=== PATIENT | male | born 1990 | race Caucasian/White ===

== ENCOUNTER 2018-07-09 09:56 | Inpatient (IN) ==
[2018-07-09] MEDS ORDERED: 0.9 % Sodium Chloride 1,000 ML IVC ONE (10:19)
[2018-07-09] MEDS ORDERED: Ondansetron 4 MG/2 ML VIAL IVP ONE ×2 (10:20→12:58)
--- NOTE | 2018-07-09 10:25 | Emergency Department Note ---
Disposition Clinical Impression: Colitis Disposition: Admitted As Inpatient Time of Disposition: 14:28 General Adult HPI - General Chief complaint: ED Abdominal Pain Stated complaint: Dehydrated/vomiting Time Seen by Provider: 07/09/18 10:03 Source: patient Limitations: no limitations Nursing Notes Reviewed: Yes Vital Signs Reviewed: Yes - History of Present Illness HPI Narrative: Patient is a 28-year-old male with no significant past medical history who presents to the ED with 2 days of left lower quadrant abdominal pain and vomit ing. Patient first noticed symptoms yesterday at 8 AM where he had intense abdominal pain. On his way home from work he vomited several times. pain is sharp and constant. Got worse over 3 hours. He went to around noon. He had an abdominal CAT scan and states results were colitis patient was sent home on Cipro, Flagyl, Phenergan, Bentyl. Patient states he has been unable to keep any of these medications down. The pain in the vomiting are persisting. Nothing has made it better. Patient has not noted any blood in his vomit. Patient denies any diarrhea. Patient states his last bowel movement was yesterday around 2 PM but it was normal. Patient denies any fevers, chills, headache Pain Scale: 10 - Related Data Allergies Allergy/AdvReac Type Severity Reaction Status Date / Time No Known Allergies Allergy Verified 07/09/18 10:08 Constitutional: Reports: as per HPI Cardiovascular: Denies: chest pain, dyspnea on exertion Respiratory: Denies: cough, dyspnea Gastrointestinal: Reports: as per HPI Genitourinary: Denies: urgency, dysuria Neurological: Reports: as per HPI Past Medical History - Past Medical History Medical history: Reports: no medical history Psychiatric history: Reports: no psych history - Social History Smoking Status: Never smoker Alcohol use: Reports: none Drug use: Reports: none Physical Exam Patient is shivering in bed. His hands are cramping during blood pressure monitoring. During the first examination I had to stop had to stop because he was actively vomiting. - General Limitations: no limitations General appearance: alert, in no apparent distress - Head Head exam: atraumatic, normocephalic, normal inspection - ENT ENT exam: mucous membranes dry - Chest Chest inspection: Present: normal inspection, symmetric chest wall rise. Absent: tenderness - Respiratory Respiratory exam: Present: normal lung sounds bilaterally. Absent: respiratory distress, wheezes - Cardiovascular Cardiovascular exam: Present: regular rate, normal rhythm, normal heart sounds, +S1, +S2. Absent: systolic murmur, diastolic murmur - Abdominal Exam Abdominal exam: Present: soft, tenderness (Moderate. Said his left lower qu adrant patient does withdraw to some of the patient but he is able to tolerate the exam.), normal bowel sounds. Absent: distention, guarding, rebound Abdominal tenderness: Present: RLQ - Rectal Exam Rectal exam: Present: normal inspection, other (No lesion or scarring noted around the rectum.) - Male exam: Present: normal inspection, normal testicular lie. Absent: inguinal hernia, inguinal lymphadenopathy, testicular tenderness, urethral discharge - Extremities Exam Extremities exam: Present: normal inspection. Absent: tenderness, pedal edema, calf tenderness - Psychiatric Psychiatric exam: Present: normal affect, normal mood - Skin Skin exam: Present: warm, dry, intact Course Vital Signs Temperature 98.1 F 07/09/18 10:00 Pulse Rate 76 07/09/18 10:00 Respiratory Rate 18 07/09/18 10:00 Blood Pressure 192/76 07/09/18 10:00 O2 Sat by Pulse Oximetry 97 07/09/18 10:00 Temperature 98.1 F 07/09/18 10:00 Pulse Rate 69 07/09/18 10:37 Respiratory Rate 17 07/09/18 17:06 Blood Pressure 130/84 07/09/18 17:06 O2 Sat by Pulse Oximetry 100 07/09/18 10:37 Oxygen Delivery Oxygen Delivery Room Air Medical Decision Making - [facility] Narrative Medical decision making narrative: Patient seen at [facility] yesterday. Records were requested. Will review once they are available. These include abdominal CT. Per patient report he has colitis. Patient was actually vomiting. We will bolus and milligrams Zofran given. Patient hand was cramping during blood pressure will get CBC CMP look for any elective abnormalities. Mentioned in the past had similar symptoms 5 years ago. That time was concerning for colitis. He did not follow-up with GI doctor. I recommended him that he does see a GI doctor. CT was reviewed from [facility]. "Mild wall thickening involving most: Likely due to nondistention, although an acute inflammatory infectious colitis cannot be excluded if this clinically correlates." Her labs white count elevated 13.6. Calcium is slightly elevated at 10.4. Spoke with GI they recommended starting IV antibiotics of Cipro and Flagyl. Like to do GI panel fecal calprotectan and start on the clear liquid diet and prep for colonoscopy tomorrow afternoon. Dr. Topete accepts for admission. - Medical Records Medical records reviewed: Yes I reviewed the patient's medical records. - Lab Data Lab results reviewed: Yes I reviewed the patient's lab results. Result diagrams: 07/09/18 10:34 07/09/18 10:34 Lab Results 07/09/18 07/09/18 07/09/18 Range/Units 10:34 10:34 11:16 WBC 11.1 (4.3-11.1) K/mcL RBC 5.11 (4.19-5.50) M/mcL Hgb 15.4 (12.9-16.9) g/dL Hct 43.0 (37.5-50.1) % MCV 84.1 (83.0-100.0) fL MCH 30.1 (28.0-33.3) pg MCHC 35.8 H (31.6-35.5) g/dL RDW 12.2 (11.5-14.5) % Plt Count 233 (140-400) K/mcL MPV 9.4 (9.4-12.4) fL Immature Gran % 0.3 (0-4) % Seg Neutrophils % 85.7 % Lymphocytes % 8.9 % Monocytes % 4.8 % Eosinophils % 0.0 % Basophils % 0.3 % Neutrophils # 9.5 H (1.6-8.9) K/mcL Lymphocytes # 1.0 (0.6-4.6) K/mcL Monocytes # 0.5 (0.0-1.3) K/mcL Eosinophils # 0.0 (0.0-0.6) K/mcL Basophils # 0.0 (0.0-0.2) K/mcL Sodium 141 (136-145) mEq/L Potassium 3.3 L (3.5-5.1) mEq/L Chloride 98 (98-107) mEq/L Carbon Dioxide 25 (23-29) mEq/L BUN 27 H (6-20) mg/dL Creatinine 1.33 H (0.70-1.30) mg/dL Est GFR ( Amer) > 60 (> 60) Est GFR (Non-Af Amer) > 60 (> 60) BUN/Creatinine Ratio 20 (6-26) Glucose 117 H (70-105) mg/dL Calculated Osmolality 298 (280-300) Calcium 11.1 H (8.6-10.3) mg/dL Venous Ioniz Calcium 1.11 L (1.15-1.35) mmol/L Total Bilirubin 1.0 (0.3-1.0) mg/dL AST 14 (13-39) Units/L ALT 14 (7-52) Units/L Alkaline Phosphatase 74 (34-104) Units/L Serum Total Protein 8.6 (6.4-8.9) g/dL Albumin 5.5 (3.5-5.7) g/dL Globulin 3.1 (2.4-3.5) g/dL Albumin/Globulin Ratio 1.8 (1.1-2.2)
[2018-07-09 11:03] LABS: Basophils % 0.3 %; Hemoglobin 15.4 g/dL (12.9-16.9); Immature Granulocytes % 0.3 % (0-4); Lymphocytes % 8.9 %; Mean Corpuscular HGB Conc 35.8 g/dL (31.6-35.5); Mean Corpuscular Hemoglobin 30.1 pg (28.0-33.3); Mean Corpuscular Volume 84.1 fL (83.0-100.0); Mean Platelet Volume 9.4 fL (9.4-12.4); Monocytes # 0.5 K/mcL (0.0-1.3); Monocytes % 4.8 %; Neutrophils # 9.5 K/mcL (1.6-8.9); Platelet Count 233 K/mcL (140-400); Red Blood Count 5.11 M/mcL (4.19-5.50); Red Cell Distribution Width 12.2 % (11.5-14.5); Segmented Neutrophils % 85.7 %
[2018-07-09 11:19] LABS: VBG Ionized Calcium 1.11 mmol/L (1.15-1.35)
--- NOTE | 2018-07-09 11:24 | Emergency Department Note ---
Disposition Clinical Impression: Colitis Disposition: Admitted As Inpatient General Adult HPI - General Chief complaint: ED Abdominal Pain Stated complaint: Dehydrated/vomiting Time Seen by Provider: 07/09/18 10:03 Source: patient Limitations: no limitations - History of Present Illness Pain Scale: 10 - Related Data Allergies Allergy/AdvReac Type Severity Reaction Status Date / Time No Known Allergies Allergy Verified 07/09/18 10:08 Constitutional: Reports: as per HPI Cardiovascular: Denies: chest pain, dyspnea on exertion Respiratory: Denies: cough, dyspnea Gastrointestinal: Reports: as per HPI Genitourinary: Denies: urgency, dysuria Neurological: Reports: as per HPI Past Medical History - Past Medical History Medical history: Reports: no medical history Psychiatric history: Reports: no psych history - Social History Smoking Status: Never smoker Alcohol use: Reports: none Drug use: Reports: none Physical Exam - General Limitations: no limitations General appearance: alert, in no apparent distress Course Vital Signs Temperature 98.1 F 07/09/18 10:00 Pulse Rate 76 07/09/18 10:00 Respiratory Rate 18 07/09/18 10:00 Blood Pressure 192/76 07/09/18 10:00 O2 Sat by Pulse Oximetry 97 07/09/18 10:00 Temperature 98.1 F 07/09/18 10:00 Pulse Rate 69 07/09/18 10:37 Respiratory Rate 17 07/09/18 17:06 Blood Pressure 130/84 07/09/18 17:06 O2 Sat by Pulse Oximetry 100 07/09/18 10:37 Oxygen Delivery Oxygen Delivery Room Air Medical Decision Making - Lab Data Result diagrams: 07/09/18 10:34 07/09/18 10:34 Lab Results 07/09/18 07/09/18 07/09/18 Range/Units 10:34 10:34 11:16 WBC 11.1 (4.3-11.1) K/mcL RBC 5.11 (4.19-5.50) M/mcL Hgb 15.4 (12.9-16.9) g/dL Hct 43.0 (37.5-50.1) % MCV 84.1 (83.0-100.0) fL MCH 30.1 (28.0-33.3) pg MCHC 35.8 H (31.6-35.5) g/dL RDW 12.2 (11.5-14.5) % Plt Count 233 (140-400) K/mcL MPV 9.4 (9.4-12.4) fL Immature Gran % 0.3 (0-4) % Seg Neutrophils % 85.7 % Lymphocytes % 8.9 % Monocytes % 4.8 % Eosinophils % 0.0 % Basophils % 0.3 % Neutrophils # 9.5 H (1.6-8.9) K/mcL Lymphocytes # 1.0 (0.6-4.6) K/mcL Monocytes # 0.5 (0.0-1.3) K/mcL Eosinophils # 0.0 (0.0-0.6) K/mcL Basophils # 0.0 (0.0-0.2) K/mcL Sodium 141 (136-145) mEq/L Potassium 3.3 L (3.5-5.1) mEq/L Chloride 98 (98-107) mEq/L Carbon Dioxide 25 (23-29) mEq/L BUN 27 H (6-20) mg/dL Creatinine 1.33 H (0.70-1.30) mg/dL Est GFR ( Amer) > 60 (> 60) Est GFR (Non-Af Amer) > 60 (> 60) BUN/Creatinine Ratio 20 (6-26) Glucose 117 H (70-105) mg/dL Calculated Osmolality 298 (280-300) Calcium 11.1 H (8.6-10.3) mg/dL Venous Ioniz Calcium 1.11 L (1.15-1.35) mmol/L Total Bilirubin 1.0 (0.3-1.0) mg/dL AST 14 (13-39) Units/L ALT 14 (7-52) Units/L Alkaline Phosphatase 74 (34-104) Units/L Serum Total Protein 8.6 (6.4-8.9) g/dL Albumin 5.5 (3.5-5.7) g/dL Globulin 3.1 (2.4-3.5) g/dL Albumin/Globulin Ratio 1.8 (1.1-2.2) Attestation Statement - Attestation Attestation: I examined this patient and my medical decision-making was reviewed with the DIGITAL CARTOGRAPHIC TECHNICIAN/PA/Advanced Practice Nurse/Resident Physician. I agree with the documented findings, disposition and treatment plan as described except to the extent set forth below. The patient presents with complaints of abdominal pain and vomiting but no diarrhea. He is having normal stools. Does have pain with palpation left side of the abdomen but soft without rigidity, rebound, guarding. Normal appearance. The patient is getting IV fluids, IV Zofran, labs including iron as calcium level and we will review the records from [facility] from yesterday and had requested those records however we have not yet received them and we are waiting at this time. We will reassess the patient. He has never had a colonoscopy but sounds like there was some concern for ulcerative colitis in the distant past. He is taking Cipro and Flagyl but has not been able to take them and he has not drank any alcohol so that is not the reason for his vomiting. I did just receive the records from [facility] and have reviewed these records and the patient did have a CT scan yesterday showing mild wall thickening involving most: And the patient's CT scan was compared to a CT scan done in 2017. The CT scan yesterday was with IV contrast. After we receive labs here we will further discussed with GI. Patient's calcium level is minimally elevated yesterday 10.4 - 1124
[2018-07-09 11:44] LABS: Alanine Aminotransferase 14 Units/L (7-52); Albumin 5.5 g/dL (3.5-5.7); Albumin/Globulin Ratio 1.8 (1.1-2.2); Alkaline Phosphatase 74 Units/L (34-104); Aspartate Amino Transferase 14 Units/L (13-39); BUN/Creatinine Ratio 20 (6-26); Blood Urea Nitrogen 27 mg/dL (6-20); Calcium 11.1 mg/dL (8.6-10.3); Carbon Dioxide 25 mEq/L (23-29); Chloride 98 mEq/L (98-107); Globulin 3.1 g/dL (2.4-3.5); Glucose 117 mg/dL (70-105); Osmolality,Calculated 298 (280-300); Potassium 3.3 mEq/L (3.5-5.1); Sodium 141 mEq/L (136-145); Total Protein 8.6 g/dL (6.4-8.9); eGFR For Non-African Americans > 60 (> 60)
[2018-07-09] MEDS ORDERED: MetroNIDAZOLE 500 MG/100 ML 500 MG/100 ML BAG IVPB ONE (14:06)
[2018-07-09] MEDS ORDERED: Hyoscyamine 0.5 MG/ML MLS IVP ONE (14:12)
[2018-07-09] MEDS ORDERED: *HR* Promethazine 25 MG/ML VIAL IVP ONE (14:17)
[2018-07-09] MEDS ORDERED: Naloxone 0.4 MG/ML INJ IVP PRN (14:39)
--- NOTE | 2018-07-09 15:38 | Internal Med History&Physical ---
Date of Encounter: 07/09/18 Time of Encounter: 15:33 Internal Medicine - H&P: HPI Chief complaint: Abdominal pain Admitted From: Emergency Dept Plans for Post Hospital Care: Home History of present illness: Mr. Landers is a 28 year old male male with no significant past medical history who presented to the ED with intractable left lower quadrant abdominal pain, nausea and vomiting from past 2 days. He did go to [place] ER y/d where he had CT of Abd done which showed colitis and he was sent home on PO Cipro and Flagyl. However his symptoms have not improved and he is still have severe nausea and vomiting. He also mentioned he has been having this kind of N/V spells for few years associated with abdominal pain. He denied any EGD / Colonoscopy in the past. He denied any family h/o UC / Crohn's disease. He denied any recent travel history. Past Med Surg Social Fam HX - Past Medical History Medical history: no medical history Psychiatric history: no psych history - Past Surgical History Additional surgical history: wrist surgery - Social History Smoking Status: Never smoker Alcohol use: none Drug use: none - Additional Family History Additional family history: Family hsitory reviewed and non contribuitory to current problem. Internal Medicine - H&P: Meds Allergy/AdvReac Type Severity Reaction Status Date / Time No Known Allergies Allergy Verified 07/09/18 10:08 All Systems PM: A 10-system review of systems was performed and is negative for pertinent findings except as documented above in the HPI. Review of systems: All the systems are reviewed everything is benign except the systems and symptoms I mentioned in the history of present illness - Constitutional Vitals: Temp Pulse Resp BP Pulse Ox 98.1 F 69 15 158/81 100 07/09/18 10:00 07/09/18 10:37 07/09/18 10:37 07/09/18 10:37 07/09/18 10:37 General appearance: Present: cooperative, mild distress (with abdominal pain), A&O X 3, answers questions appropriately Exam: see below - Head Head exam: Present: atraumatic, normal inspection - Neck Neck exam general surgery: Present: supple - Respiratory Respiratory exam: Present: decreased breath sounds. Absent: rales, respiratory distress, rhonchi, wheezes - Cardiovascular Cardiovascular exam: Present: RRR, +S1, +S2. Absent: tachycardia - GI/Abdominal GI/Abdominal exam: Present: diminished bowel sounds, normal bowel sounds, soft, tenderness (LLQ), no peritoneal signs. Absent: guarding, rebound, rigid - Extremities Exam Extremities exam: Absent: calf tenderness, pedal edema, tenderness - Back Exam Back exam: Absent: CVA tenderness (L), CVA tenderness (R) - Neurological Exam Neurological exam: Present: alert, oriented X3 - Psychiatric Psychiatric exam: Present: normal affect, normal mood - Skin Skin exam: Absent: rash Internal Med - H&P Results - Labs CBC & Chem 7: 07/09/18 10:34 07/09/18 10:34 Labs: Short CBC 07/09/18 Range/Units 10:34 WBC 11.1 (4.3-11.1) K/mcL Hgb 15.4 (12.9-16.9) g/dL Hct 43.0 (37.5-50.1) % Plt Count 233 (140-400) K/mcL Neutrophils # 9.5 H (1.6-8.9) K/mcL BMP 07/09/18 10:34 Sodium 141 Potassium 3.3 L Chloride 98 Carbon Dioxide 25 BUN 27 H Creatinine 1.33 H Glucose 117 H Calcium 11.1 H Liver Function 07/09/18 Range/Units 10:34 Total Bilirubin 1.0 (0.3-1.0) mg/dL AST 14 (13-39) Units/L ALT 14 (7-52) Units/L Alkaline Phosphatase 74 (34-104) Units/L Albumin 5.5 (3.5-5.7) g/dL - Assessment and plan (1) Colitis Current Visit: Yes Status: Acute Assessment and plan: Place the pt into med surg for observation his CT of [place] showed Colitis Concerning for inflammatory disease However need to f/o infectious process too will check GI panel He denied any Melena/ BRBPR GI is already consulted by ER Clear liquid diet for now NPO after mid night if he needs to go for Colonoscopy in AM No need of steroids at this point Started him on PO Percocet and IV Fentanyl prn on Zofran and Phenergan PRN for N/V IV hydration (2) Intractable abdominal pain Current Visit: Yes Status: Acute (3) Intractable nausea and vomiting Current Visit: Yes Status: Acute Qualifiers: Vomiting type: unspecified Qualified Code(s): R11.2 - Nausea with vomiting, unspecified (4) JANY (acute kidney injury) Current Visit: Yes Status: Acute Assessment and plan: He does have mild JANY due to dehydration started on IVF trend on Cr - Time Spent With Patient Total time spent is greater than 50% in coordination of care (as documented) at patient's floor/unit and/or counseling patient:
[2018-07-09] MEDS ORDERED: *HR* OxyCODONE/APAP 5/325 TABLET PO PRN (16:09)
[2018-07-09] MEDS ORDERED: *HR* FentaNYL (PF) 100 MCG/2 ML VIAL IVP PRN (16:09)
[2018-07-09] MEDS: 0.9 % Sodium Chloride 1,000 ML IVC SCH (17:47)
[2018-07-09] MEDS ORDERED: Ondansetron 4 MG/2 ML VIAL ONE (18:38)
[2018-07-09] MEDS: Ondansetron 4 MG/2 ML VIAL IVP PRN (18:45)
[2018-07-09] MEDS: *HR* Promethazine 25 MG/ML VIAL IVP PRN (20:48)
[2018-07-09] MEDS ORDERED: Acetaminophen IV 1,000 MG/100 ML INFUS..BTL IVPB ONE (21:02)
[2018-07-09] MEDS: MetroNIDAZOLE 500 MG/100 ML 500 MG/100 ML BAG IVPB SCH (23:38)
[2018-07-10] MEDS: 0.9 % Sodium Chloride 1,000 ML IVC SCH ×4 (02:26→20:07)
[2018-07-10] MEDS: *HR* Promethazine 25 MG/ML VIAL IVP PRN ×5 (02:47→23:41)
[2018-07-10] MEDS ORDERED: Acetaminophen IV 1,000 MG/100 ML INFUS..BTL IVPB ONE ×2 (04:11→09:34)
[2018-07-10 04:37] LABS: Basophils % 0.2 %; Hematocrit 41.3 % (37.5-50.1); Hemoglobin 14.3 g/dL (12.9-16.9); Immature Granulocytes % 0.4 % (0-4); Lymphocytes # 0.9 K/mcL (0.6-4.6); Lymphocytes % 7.2 %; Mean Corpuscular HGB Conc 34.6 g/dL (31.6-35.5); Mean Corpuscular Volume 86.6 fL (83.0-100.0); Mean Platelet Volume 9.3 fL (9.4-12.4); Monocytes # 0.8 K/mcL (0.0-1.3); Monocytes % 6.3 %; Platelet Count 194 K/mcL (140-400); Red Blood Count 4.77 M/mcL (4.19-5.50); Red Cell Distribution Width 12.1 % (11.5-14.5); Segmented Neutrophils % 85.9 %
[2018-07-10 05:03] LABS: BUN/Creatinine Ratio 20 (6-26); Blood Urea Nitrogen 21 mg/dL (6-20); Calcium 9.8 mg/dL (8.6-10.3); Carbon Dioxide 30 mEq/L (23-29); Chloride 101 mEq/L (98-107); Glucose 118 mg/dL (70-105); Osmolality,Calculated 298 (280-300); Potassium 3.3 mEq/L (3.5-5.1); Sodium 142 mEq/L (136-145); eGFR For Non-African Americans > 60 (> 60)
--- NOTE | 2018-07-10 05:30 | Event Note ---
Date of Encounter: 07/09/18 Time of Encounter: 20:27 Alerted by patient's nurse CRISTA Santiago that patient was actively vomiting and had received Zofran at 18:45. Order for promethazine 12.5 mg IVP every 4 hours when necessary for nausea and vomiting placed with instructions to give first dose now. Also alerted that patient was complaining of lower abdominal pain and had Percocet ordered by mouth. Due to current nausea and vomiting patient would not be able to take by mouth Percocet. IVP fentanyl was also ordered, however patient had been hypertensive with BP of 105/62 at the time. One-time dose of IVPB Ofirmev 1000 mg ordered. Pt. reported to nurse that the Ofirmev was helping with his pain. Alerted at 04:04 that the pt. was experiencing pain again and requesting Ofirmev. Nurse instructed to obtain BP which was 119/75. Nurse instructed that patient's BP was currently too low for ordered fentanyl. Second dose of IVPB Ofirmev ordered d/t pts. hypotension and current intractable N/V. Nurse instructed to continue monitoring pt. closely and to notify me immediately of any adverse changes.
[2018-07-10] MEDS: MetroNIDAZOLE 500 MG/100 ML 500 MG/100 ML BAG IVPB SCH ×3 (07:42→23:41)
[2018-07-10] MEDS ORDERED: Potassium Chloride 40 MEQ, Lidocaine 1% 2 ML in D5% in Water 500 ML IVPB ONE (08:14)
--- NOTE | 2018-07-10 10:44 | Internal Med Progress Note ---
<Salomón Bowman - Last Filed: 07/10/18 10:51> Date of Encounter: 07/10/18 Time of Encounter: 09:00 - Assessment and plan (1) Colitis Current Visit: Yes Status: Acute Assessment and plan: CT of the abdomen showed colitis. Concerning for inflammatory disease. GI panel is still pending. Patient denies any melena or hematochezia. Hemoglobin is stable. GI was consult to aid. No indication for steroid treatment at this point. Patient is afebrile. White blood cell count slightly high at 12.8. - Plan for colonoscopy in a.m. to rule out inflammatory bowel disease. - Continue antiemetics. - Continue nothing by mouth. - Day 2 of Cipro and Flagyl IV. - Continue IV fentanyl for pain when necessary. (2) Intractable abdominal pain Current Visit: Yes Status: Acute Assessment and plan: Patient continues to have abdominal pain most notably in the left lower quadrant. His pain has improved from yesterday. - Increase fentanyl from 25 g to 50 g. (3) Intractable nausea and vomiting Current Visit: Yes Status: Acute Assessment and plan: - Zofran when necessary. - Continue IV fluids. Qualifiers: Vomiting type: unspecified Qualified Code(s): R11.2 - Nausea with vomiting, unspecified (4) JANY (acute kidney injury) Current Visit: Yes Status: Resolved Assessment and plan: Renal function is improved. Creatinine has dropped from 1.33 down to 1.05. - Continue IV fluids. (5) Hypokalemia Current Visit: Yes Status: Acute Assessment and plan: Potassium at 3.3. Likely secondary to intractable vomiting. - 40 mEq potassium IV. - Recheck labs in the a.m. - Continue IV fluids. (6) DVT prophylaxis Current Visit: Yes Status: Acute Assessment and plan: - Heparin 5000 units subcutaneously every 12 hours. - Subjective Interval history: When seen today patient was still complaining of abdominal pain. He says it is sharp in nature and located bilaterally in his lower quadrants with the left side worse than the right. He admits to nausea and vomiting. Possible hematemesis last night. He rates his abdominal pain as a 10 out of 10 yesterday which has slightly improved today to assess not a 10 in severity. He denies any fever. He admits to chest pain with deep breaths. He also admits to shortness of breath. Denies any swelling. Denies any yellowing skin. - Constitutional Vitals: Temp Pulse Resp BP Pulse Ox 97.9 F 100 17 131/84 95 07/10/18 07:51 07/10/18 07:51 07/10/18 07:51 07/10/18 07:51 07/10/18 07:52 General appearance: Present: cooperative, mild distress (with abdominal pain), A&O X 3, answers questions appropriately - Eye Eye exam: Present: sclera anicteric - Respiratory Respiratory exam: Present: chest wall tenderness, CTAB. Absent: accessory muscle use, rales, rhonchi, wheezes - Cardiovascular Cardiovascular exam: Present: RRR, +S1, +S2. Absent: diastolic murmur, gallop, rubs, systolic murmur - GI/Abdominal GI/Abdominal exam: Present: normal bowel sounds, soft, tenderness (Moderate tenderness in the lower quadrants bilaterally with light and deep palpation. Left lower quadrant worse than the right.), no peritoneal signs. Absent: distended, guarding, rebound - Extremities Exam Extremities exam: Present: normal capillary refill, warm, radial pulses palpable and symmetrical. Absent: calf tenderness, cyanotic, pedal edema - Skin Skin exam: Present: dry, intact Additional comments: No jaundice Internal Medicine: Result - Labs CBC & Chem 7: 07/10/18 03:54 07/10/18 03:54 Labs: Short CBC 07/09/18 07/10/18 Range/Units 10:34 03:54 WBC 11.1 12.8 H (4.3-11.1) K/mcL Hgb 15.4 14.3 (12.9-16.9) g/dL Hct 43.0 41.3 (37.5-50.1) % Plt Count 233 194 (140-400) K/mcL Neutrophils # 9.5 H 11.0 H (1.6-8.9) K/mcL BMP 07/09/18 07/10/18 10:34 03:54 Sodium 141 142 Potassium 3.3 L 3.3 L Chloride 98 101 Carbon Dioxide 25 30 H BUN 27 H 21 H Creatinine 1.33 H 1.05 Glucose 117 H 118 H Calcium 11.1 H 9.8 Liver Function 07/09/18 Range/Units 10:34 Total Bilirubin 1.0 (0.3-1.0) mg/dL AST 14 (13-39) Units/L ALT 14 (7-52) Units/L Alkaline Phosphatase 74 (34-104) Units/L Albumin 5.5 (3.5-5.7) g/dL Consult Discharge Plan - Plan Referrals: NONE,PCP [Primary Care Provider] - <Mitch Gibson - Last Filed: 07/10/18 13:31> Date of Encounter: 07/10/18 - Assessment and plan (1) Colitis Current Visit: Yes Status: Acute (2) Intractable abdominal pain Current Visit: Yes Status: Acute (3) Intractable nausea and vomiting Current Visit: Yes Status: Acute Qualifiers: Vomiting type: unspecified Qualified Code(s): R11.2 - Nausea with vomiting, unspecified (4) JANY (acute kidney injury) Current Visit: Yes Status: Resolved - Constitutional Vitals: Temp Pulse Resp BP Pulse Ox 98.6 F 73 16 131/80 96 07/10/18 11:30 07/10/18 11:30 07/10/18 11:30 07/10/18 11:30 07/10/18 11:30 Internal Medicine: Result - Labs CBC & Chem 7: 07/10/18 03:54 07/10/18 03:54 Labs: Short CBC 07/10/18 Range/Units 03:54 WBC 12.8 H (4.3-11.1) K/mcL Hgb 14.3 (12.9-16.9) g/dL Hct 41.3 (37.5-50.1) % Plt Count 194 (140-400) K/mcL Neutrophils # 11.0 H (1.6-8.9) K/mcL BMP 07/10/18 03:54 Sodium 142 Potassium 3.3 L Chloride 101 Carbon Dioxide 30 H BUN 21 H Creatinine 1.05 Glucose 118 H Calcium 9.8 - Attending Attestation I examined this patient and my medical decision-making was reviewed with the Resident Physician Dr. Bowman. I agree with the documented findings, disposition and treatment plan as described except to the extent set forth below. Mr. Landers is a 28 year old male male with no significant past medical history who presented to the ED with intractable left lower quadrant abdominal pain, nausea and vomiting from past 2 days. He did go to [place] ER y/d where he had CT of Abd done which showed colitis and he was sent home on PO Cipro and Flagyl. However his symptoms have not improved and he is still have severe nausea and vomiting. He also mentioned he has been having this kind of N/V spells for few years associated with abdominal pain. He denied any EGD / Colonoscopy in the past. He denied any family h/o UC / Crohn's disease. He denied any recent travel history. He was admitted in the hospital and started him on IV abx and IV hydration. Pt stated he still has moderate to severe abd pain and asking for more frequent iV pain medications. Still has nausea / vomiting. Abd: Soft, moderate tenderness RLQ. Ni guarding ap 1. Acute colitis clear liquid diet NPO after mid night IV hydration IV Fentanyl Cont empirical ab Cipro and Flagyl scheduled for Colonoscopy in AM by GI
[2018-07-10] MEDS: *HR* FentaNYL (PF) 100 MCG/2 ML VIAL IVP PRN ×3 (10:50→20:07)
--- NOTE | 2018-07-10 11:48 | Anesthesia Evaluation PreOp ---
Date of Encounter: 07/10/18 Time of Encounter: 11:46 - Past History Planned Operation: EGD/Colonoscopy Cardiac History: Denies any Significant Hx Pulmonary History: Denies Any Significant HX Other Medical History: Denies Any Significant HX Anesthesia History: No Prior Anesthetic Complications, Past Anesthesia (wrist sx) Alcohol Use: none Drug use: none Medications and Allergies No Known Home Drugs 07/09/18 [History] Allergy/AdvReac Type Severity Reaction Status Date / Time No Known Allergies Allergy Verified 07/09/18 10:08 - Meds/Allergy Pre-op Review Medications Reviewed: Yes Allergies Reviewed: Yes Beta Blockers on Current Med List: No Anesthesia Results - Labs 07/10/18 03:54 07/10/18 03:54 Anesthesia Exam Vital Signs/O2 Sat, Most Current Temp Pulse Resp BP Pulse Ox 98.6 F 73 16 131/80 96 07/10/18 11:30 07/10/18 11:30 07/10/18 11:30 07/10/18 11:30 07/10/18 11:30 NPO (# of Hours): > 8 hrs Pain Scale: 0 Pain Scale Used: Numeric (1 - 10) Anesthesia Assess/Plan ASA Score: 1 Level of consciousness: Cooperative Anesthetic Plan: MAC Autologous Blood: Yes Monitoring Plan: Standard Monitors Recovery Plan: PACU
--- NOTE | 2018-07-10 12:27 | Gastroenterology Consult Note ---
<CarlsonDavide venegas Oracio - Last Filed: 07/10/18 12:25> Date of Encounter: 07/10/18 Time of Encounter: 10:30 - Assessment and plan (1) Colitis Current Visit: Yes Status: Acute Assessment and plan: CT abd at [place] which showed colitis. She was given Cipro and Flagyl PO, but symptoms did not improve. Patient start on IV Cipro and Flagyl. Planned for colonoscopy today, but patient was not prepped overnight. Plan for colonoscopy tomorrow. Clear liquid diet today, no red or purple. NPO at midnight. If unable tolerate NuLytely please use MiraLAX prep. If not clear by 6 AM, give 2 tap water enemas. (2) Intractable nausea and vomiting Current Visit: Yes Status: Acute Assessment and plan: Start IV Protonix. Continue anti-emetics. Plan for EGD today to r/o esophagitis, gastritis, duodenitis, PUD, MW tear, or AVM. Qualifiers: Vomiting type: unspecified Qualified Code(s): R11.2 - Nausea with vomiting, unspecified (3) Bloody vomitus Current Visit: Yes Status: Acute Assessment and plan: Likely secondary to Imelda-Cloud tears due to retching. Plan for EGD tomorrow. Qualifiers: Nausea presence: with nausea Qualified Code(s): K92.0 - Hematemesis - Time Spent With Patient Total time spent is greater than 50% in coordination of care (as documented) at patient's floor/unit and/or counseling patient: GI History of Present Illness - Data of Consult Patient: new to practice Consult date: 07/10/18 Requesting Physician: Mitch Gibson MD - Consult Narrative Reason for consult: Colitis, N/V History of present illness: Mr. Landers is a 28 year old male with no significant past medical history who presneted to the ED with intractable LLQ pain, nausea, and vomiting that had been ongoing for 2 days. He went to [place] ED and had CT abd which showed colitis and was given Cipro and Flagyl PO and sent home. Symptoms did not improve and is now unable to keep "anything down". This AM he reports some blood in his vomit. Patient reports long history of reflux. He states he normally eats fast food daily, and symptoms worsen after eating. He denies marijuana use. Procedures: None NSAIDs: None Anticoagulation: None Past Med Surg Social Fam HX - Past Medical History Medical history: no medical history Psychiatric history: no psych history - Past Surgical History Additional surgical history: wrist surgery - Social History Smoking Status: Never smoker Alcohol use: none Drug use: none - Gastrointestinal Gastrointestinal: Present: as per HPI - Constitutional Constitutional: as per HPI - EENT Eyes: as per HPI Ears: Present: as per HPI Nose, mouth and throat: Present: as per HPI - Cardiovascular Cardiovascular ROS: Present: as per HPI - Respiratory Respiratory IM: Present: as per HPI - Genitourinary Genitourinary: Absent: change in color, Urinary frequency - Neurological ROS Neurological GI: Present: as per HPI - Hematologic/Lymphatic Hematologic/Lymphatic pediatric: Present: as per HPI - Musculoskeletal Musculoskeletal ROS GI: Present: as per HPI - Integumentary Integumentary GI: Present: as per HPI - Psychiatric ROS Psychiatric GI: Present: as per HPI - Endocrine Endocrine IM: Present: as per HPI - Constitutional Vitals: Temp Pulse Resp BP Pulse Ox 98.6 F 73 16 131/80 96 07/10/18 11:30 07/10/18 11:30 07/10/18 11:30 07/10/18 11:30 07/10/18 11:30 General appearance: Present: cooperative, A&O X 3, answers questions appropriately Exam: Pt wretching during exam. - Head Head exam: Present: atraumatic, normocephalic - Eye Eye exam: Present: normal appearance, sclera anicteric - ENT ENT exam: Present: mucous membranes dry - Neck Neck exam general surgery: Present: normal inspection, trachea midline - Respiratory Respiratory exam: Present: CTAB - Cardiovascular Cardiovascular exam: Present: RRR, +S1, +S2 - GI/Abdominal GI/Abdominal exam: Present: normal bowel sounds, soft, tenderness (diffuse), no peritoneal signs. Absent: distended, firm, guarding - Rectal Rectal exam: Present: deferred - Extremities Exam Extremities exam: Present: warm - Neurological Exam Neurological exam: Present: no focal deficits - Psychiatric Psychiatric exam: Present: normal affect, normal mood - Skin Skin exam: Present: dry, intact, normal color, warm Results - Labs CBC & Chem 7: 07/10/18 03:54 07/10/18 03:54 Labs: Last Result Calcium 9.8 mg/dL (8.6-10.3) 07/10/18 03:54 Entire Visit Hgb 14.3 g/dL (12.9-16.9) 07/10/18 03:54 Hct 41.3 % (37.5-50.1) 07/10/18 03:54 Total Bilirubin 1.0 mg/dL (0.3-1.0) 07/09/18 10:34 AST 14 Units/L (13-39) 07/09/18 10:34 ALT 14 Units/L (7-52) 07/09/18 10:34 Consult Discharge Plan - Plan Referrals: NONE,PCP [Primary Care Provider] - <Ashley Hung - Last Filed: 07/10/18 21:51> Date of Encounter: 07/10/18 Time of Encounter: 14:00 - Time Spent With Patient Total time spent is greater than 50% in coordination of care (as documented) at patient's floor/unit and/or counseling patient: GI History of Present Illness - Data of Consult Requesting Physician: Mitch Gibson MD - Consult Narrative History of present illness: Mr. Landers is a 28 year old male - Constitutional Vitals: Temp Pulse Resp BP Pulse Ox 98.2 F 75 16 145/81 98 07/10/18 19:19 07/10/18 19:19 07/10/18 19:19 07/10/18 19:19 07/10/18 19:19 Results - Labs CBC & Chem 7: 07/10/18 03:54 07/10/18 03:54 Labs: Last Result Calcium 9.8 mg/dL (8.6-10.3) 07/10/18 03:54 Entire Visit Hgb 14.3 g/dL (12.9-16.9) 07/10/18 03:54 Hct 41.3 % (37.5-50.1) 07/10/18 03:54 Total Bilirubin 1.0 mg/dL (0.3-1.0) 07/09/18 10:34 AST 14 Units/L (13-39) 07/09/18 10:34 ALT 14 Units/L (7-52) 07/09/18 10:34 - Attending Attestation I have personally performed a face to face evaluation on this patient. I have reviewed and agree with the care plan. History and Exam by me shows: Pt seen. Pt with recurrent symptoms of abd pain with NV. O/E: AAO, abd soft A: Pt with recurrent abd pain NV for many years, ct with colitis r/o AIP. Rec: EGD- colon
[2018-07-10] MEDS: Pantoprazole 40 MG VIAL IVP SCH (12:41)
[2018-07-10] MEDS: Ondansetron 4 MG/2 ML VIAL IVP PRN ×2 (14:13→20:12)
[2018-07-10] MEDS ORDERED: *HR* Heparin 5,000 UNIT/ML VIAL SQ SCH (18:00)
[2018-07-10] MEDS ORDERED: Ondansetron 4 MG/2 ML VIAL IVP SCH (18:45)
[2018-07-11] MEDS: *HR* FentaNYL (PF) 100 MCG/2 ML VIAL IVP PRN ×2 (00:39→05:21)
[2018-07-11] MEDS: Ondansetron 4 MG/2 ML VIAL IVP PRN ×2 (03:16→13:23)
[2018-07-11 04:43] LABS: Basophils % 0.3 %; Eosinophils % 0.2 %; Hematocrit 41.8 % (37.5-50.1); Hemoglobin 14.2 g/dL (12.9-16.9); Immature Granulocytes % 0.3 % (0-4); Lymphocytes # 1.3 K/mcL (0.6-4.6); Lymphocytes % 11.8 %; Mean Corpuscular Volume 88.4 fL (83.0-100.0); Mean Platelet Volume 9.4 fL (9.4-12.4); Monocytes # 0.7 K/mcL (0.0-1.3); Monocytes % 6.4 %; Neutrophils # 9.1 K/mcL (1.6-8.9); Platelet Count 176 K/mcL (140-400); Red Blood Count 4.73 M/mcL (4.19-5.50)
[2018-07-11 04:56] LABS: BUN/Creatinine Ratio 18 (6-26); Blood Urea Nitrogen 16 mg/dL (6-20); Calcium 9.3 mg/dL (8.6-10.3); Carbon Dioxide 25 mEq/L (23-29); Chloride 106 mEq/L (98-107); Glucose 102 mg/dL (70-105); Osmolality,Calculated 291 (280-300); Potassium 3.9 mEq/L (3.5-5.1); Sodium 140 mEq/L (136-145); eGFR For Non-African Americans > 60 (> 60)
[2018-07-11] MEDS: *HR* Promethazine 25 MG/ML VIAL IVP PRN ×2 (05:23→10:18)
[2018-07-11] MEDS: 0.9 % Sodium Chloride 1,000 ML IVC SCH (05:24)
[2018-07-11] MEDS ORDERED: Propofol 500 MG/50 ML INFUS..BTL ONE ×2 (07:12→07:49)
[2018-07-11] MEDS ORDERED: Lidocaine -MPF 2% 2 ML VIAL ONE ×2 (07:16→07:49)
[2018-07-11] MEDS ORDERED: *HR* Succinylcholine 200 MG/10 ML VIAL IVP ONE ×2 (07:21→07:49)
[2018-07-11] MEDS ORDERED: Lidocaine -MPF 4% 5 ML AMPUL ONE (07:49)
--- NOTE | 2018-07-11 07:52 | Anesthesia Evaluation PreOp ---
Date of Encounter: 07/11/18 Time of Encounter: 07:50 - Past History Planned Operation: EGD/Colonoscopy Cardiac History: Denies any Significant Hx Pulmonary History: Former smoker (quit 5 years ago, smoked for 5 years) SPA HOST History: Denies Any Significant HX Other Medical History: GERD Anesthesia History: No Prior Anesthetic Complications, Past Anesthesia Alcohol Use: none Drug use: none Medications and Allergies No Known Home Drugs 07/09/18 [History] Allergy/AdvReac Type Severity Reaction Status Date / Time No Known Allergies Allergy Verified 07/09/18 10:08 - Meds/Allergy Pre-op Review Medications Reviewed: Yes Allergies Reviewed: Yes Beta Blockers on Current Med List: No Anesthesia Results - Labs 07/11/18 03:37 07/11/18 03:37 Anesthesia Exam Vital Signs/O2 Sat, Most Current Temp Pulse Resp BP Pulse Ox 98.0 F 75 16 131/80 96 07/11/18 07:18 07/11/18 07:18 07/11/18 07:18 07/11/18 07:18 07/11/18 07:18 Height: 5'9''/1.75m Weight: 146 lbs/66.5 kg NPO (# of Hours): 8 Pain Scale: 0 Pain Scale Used: Numeric (1 - 10) - HEENT Pupil (Motor): EOMI Mallampati: II Teeth: Normal Oral Opening: Greater than 3 - SPA HOST LOC: Oriented SPA HOST Motor: Normal RUE, Normal LUE, Normal RLE, Normal LLE, Normal Face SPA HOST Sensory: Normal: RUE, LUE, RLE, LLE, Face - Cardiac Rhythm: Regular Murmur: None - Pulmonary Breath Sounds: bilateral Clear Respiratory Effort: Symmetrical Anesthesia Assess/Plan ASA Score: 1 Level of consciousness: Cooperative, Oriented, Tranquil Anesthetic Plan: MAC Monitoring Plan: Standard Monitors
[2018-07-11] MEDS ORDERED: Sucralfate 1 GM TABLET PO SCH (09:00)
[2018-07-11] MEDS ORDERED: Fluconazole 100 MG TABLET PO SCH ×2 (09:15)
[2018-07-11] MEDS ORDERED: Dexamethasone 4 MG/ML VIAL ONE (09:26)
[2018-07-11] MEDS: Pantoprazole 40 MG VIAL IVP SCH (09:26)
[2018-07-11] MEDS: MetroNIDAZOLE 500 MG/100 ML 500 MG/100 ML BAG IVPB SCH (10:25)
[2018-07-11 11:12] VITALS: BP 134/75
--- NOTE | 2018-07-11 11:41 | Discharge Summary ---
<Salomón Bowman - Last Filed: 07/11/18 11:35> - NOTES TO OUTPATIENT PROVIDER Notes to Outpatient Provider: Given patient's recent diagnosis of oral thrush he will need to be evaluated for HIV and hepatitis infection. Orders not resulted at time of discharge: Pending orders 07/09/18 14:07 Calprotectin, Fecal Stat 07/11/18 08:46 Cytology [PTH] Routine 07/11/18 08:57 Surgical Pathology [PTH] Routine Date of Encounter: 07/11/18 Time of Encounter: 09:10 - Discharge Diagnosis (1) Colitis Priority: Primary Status: Acute (2) Esophageal candidiasis Priority: Primary Status: Acute (3) Intractable abdominal pain Priority: Primary Status: Acute (4) Hiatal hernia Priority: Primary Status: Acute (5) GERD (gastroesophageal reflux disease) Priority: Primary Status: Acute Qualifiers: Esophagitis presence: with esophagitis Qualified Code(s): K21.0 - Gastro- esophageal reflux disease with esophagitis (6) Intractable nausea and vomiting Priority: Primary Status: Acute Qualifiers: Vomiting type: unspecified Qualified Code(s): R11.2 - Nausea with vomiting, unspecified (7) JANY (acute kidney injury) Priority: Primary Status: Resolved (8) Hypokalemia Priority: Primary Status: Resolved (9) DVT prophylaxis Priority: Primary Status: Acute Hospital course: Mr. Landers is a 28 YO M with no significant PMH that presented to the ED on 07/09/18 with intractable left lower quadrant abdominal pain, nausea and vomiting for 2 days. He did go to [place] where he had CT of abdomen which showed colitis and he was sent home on PO Cipro and Flagyl. However his symptoms did not improve and he is still have severe nausea and vomiting. He denied any EGD / Colonoscopy in the past. He denied any family history of UC / Crohn's disease. He denied any recent travel history. Patient's antibiotics of Cipro and Flagyl were continued while his stay in the hospital. There was suspect for inflammatory bowel disease given patient's symptoms. He was subsequently sent to have an EGD and colonoscopy performed. EGD showed reflux esophagitis, esophageal plaques which were suspicious for candidiasis, and a small hiatal hernia. Colonoscopy was normal. GI recommended patient to be discharged with a two-week supply of fluconazole as well as omeprazole and Carafate. When patient was seen today he still continued to complain of some moderate abdominal pain. Patient says that he did have bloody emesis last night. He does admit to some minor nausea which has improved since his stay at the hospital. He denies any fever, chest pain, shortness of breath, lightheadedness, or dizziness. Patient will need to follow-up with GI in the outpatient. Patient will also need to follow-up with his PCP in one week. Warned patient that if he continues to experience increased nausea, vomiting, fever, abdominal pain, hematemesis, or any bloody bowel movements to report back to the ER. As a note given patient's recent diagnosis of esophageal candidiasis he will need to be evaluated by his PCP for any HIV infection or hepatitis. - Time Spent with Patient Total time spent providing and/or coordinating discharge services: Less than 30 minutes - Discharge Medications Prescriptions: RX: OxyCODONE/APAP 5/325 [Percocet 5/325 MG] 1 each PO Q6HR PRN 3 Days #12 tablet PRN Reason: Moderate Pain Ondansetron HCl [Zofran] 4 mg PO Q8HR PRN 3 Days #9 tab PRN Reason: Nausea And Vomiting RX: Fluconazole [Diflucan] 100 mg PO DAILY 14 Days #14 tablet RX: Omeprazole [PriLOSEC] 40 mg PO BIDAC 30 Days #60 capsule. RX: Sucralfate [Carafate] 1 gm PO TIDAC 30 Days #90 udc Home Medications: Ondansetron HCl [Zofran] 4 mg PO Q8HR PRN 3 Days #9 tab 07/11/18 [Rx] RX: Fluconazole [Diflucan] 100 mg PO DAILY 14 Days #14 tablet 07/11/18 [Rx] RX: Omeprazole [PriLOSEC] 40 mg PO BIDAC 30 Days #60 capsule. 07/11/18 [Rx] RX: OxyCODONE/APAP 5/325 [Percocet 5/325 MG] 1 each PO Q6HR PRN 3 Days #12 tablet 07/11/18 [Rx] RX: Sucralfate [Carafate] 1 gm PO TIDAC 30 Days #90 udc 07/11/18 [Rx] Allergies/Adverse Reactions: Allergy/AdvReac Type Severity Reaction Status Date / Time No Known Allergies Allergy Verified 07/09/18 10:08 Date of admission: 07/10/18 16:06 Primary care physician: PCP NONE Consults: 07/09/18 15:47 Consult to Gastroenterology [CONS] Routine Consulting Provider: Jd Burkett Reason for Consult: Acute colitis Time Notified: 15:47 Call Completed: No Discharging clinician: Salomón Bowman Anticipated date of discharge: 07/11/18 - Constitutional Vitals: Temp Pulse Resp BP Pulse Ox 98.2 F 84 16 134/75 96 07/11/18 11:08 07/11/18 11:08 07/11/18 11:08 07/11/18 11:08 07/11/18 11:08 General appearance: Present: cooperative, mild distress (with abdominal pain), A&O X 3, answers questions appropriately - Respiratory Respiratory exam: Present: CTAB. Absent: accessory muscle use, rales, rhonchi, wheezes - Cardiovascular Cardiovascular exam: Present: RRR, +S1, +S2. Absent: diastolic murmur, gallop, rubs, systolic murmur - GI/Abdominal GI/Abdominal exam: Present: normal bowel sounds, soft, tenderness (Mild to moderate abdominal pain in the left lower quadrant with light palpation.), no peritoneal signs. Absent: distended - Extremities Exam Extremities exam: Present: warm, radial pulses palpable and symmetrical. Absent: calf tenderness, cyanotic, pedal edema - Skin Skin exam: Present: dry, intact - Patient Status Disposition: Home, Self-Care Functional capacity at discharge: independent ambulation Overall status at discharge: patient is progressing back to baseline - Discharge Instructions Instructions: Hiatal Hernia (DC), Oral Candidiasis (GEN), Gastroesophageal Reflux Disease (DC) Follow Up With: Salomón Bowman DO [Resident] - (Pt stated they would make own appt. Pt also given number to Mad[facility] briscoe physician [phone]) Ashley Hung MD [Partnered Physician] - (Follow up appointment has been requested. Office will call with date and time of appointment. ) - Diet and Activity Activity: resume usual activities as tolerated Diet: other (Avoid spicy foods and caffeine products. ) <Mitch Gibson - Last Filed: 07/11/18 13:55> Orders not resulted at time of discharge: Pending orders 07/09/18 14:07 Calprotectin, Fecal Stat 07/11/18 08:46 Cytology [PTH] Routine 07/11/18 08:57 Surgical Pathology [PTH] Routine Date of Encounter: 07/11/18 - Discharge Diagnosis (1) Colitis Status: Acute (2) Intractable abdominal pain Status: Acute (3) Intractable nausea and vomiting Status: Acute Qualifiers: Vomiting type: unspecified Qualified Code(s): R11.2 - Nausea with vomiting, unspecified (4) JANY (acute kidney injury) Status: Resolved Hospital course: Mr. Landers is a 28 year old male - Time Spent with Patient Total time spent providing and/or coordinating discharge services: Date of admission: 07/10/18 16:06 Primary care physician: PCP NONE Consults: 07/09/18 15:47 Consult to Gastroenterology [CONS] Routine Consulting Provider: Gastroenterology Madelaine Reason for Consult: Acute colitis Time Notified: 15:47 Call Completed: No - Constitutional Vitals: Temp Pulse Resp BP Pulse Ox 98.2 F 84 16 134/75 96 07/11/18 11:08 07/11/18 11:08 07/11/18 11:08 07/11/18 11:08 07/11/18 11:08 - Attending Attestation I examined this patient and my medical decision-making was reviewed with the Resident Physician Dr. Bowman. I agree with the documented findings, disposition and treatment plan as described except to the extent set forth below. Mr. Landers is a 28 year old male male with no significant past medical history who presented to the ED with intractable left lower quadrant abdominal pain, nausea and vomiting from past 2 days. He did go to [facility] ER y/d where he had CT of Abd done which showed colitis and he was sent home on PO Cipro and Flagyl. However his symptoms have not improved and he is still have severe nausea and vomiting. He also mentioned he has been having this kind of N/V spells for few years associated with abdominal pain. He denied any EGD / Colonoscopy in the past. He denied any family h/o UC / Crohn's disease. He denied any recent travel history. He was admitted in the hospital and started him on IV abx and IV hydration. Pt stated he is feeling little better today and tolerating PO intake well. He did EGD / Colonoscopy today. EGD showed Grade D reflux encephalitis and esophageal plaques noticed which is suspicious for candidiasis. colonoscopy did not show any inflammatory / infectious changes. Abd: Soft, moderate tenderness RLQ. No guarding ap 1. Acute colitis Improved s/p colonoscopy No need of abx 2. Acute candidal esophagitis started him on Diflucan 100mg Daily x 2 weeks PPI BID + Carafate TID also recommend the pt to have out pt HIV / Hep C screening
== END 2018-07-11 13:28 | disposition home or self-care (01) | DRG 391 ==
LOC: EMEROOARM 09:56 → 3BNU 09:56 → SUATTDRO 15:42 → 3BNU 17:09
PROVIDERS: ADMIT Student in an Organized Health Care Education/Training Program; ATTEND Family Medicine
PROC: ENDOEBX (2018-07-11 08:00)
PROC: ENDOCBX (2018-07-11 08:00)